=== PATIENT | female | born 1990 | race Caucasian/White ===

== ENCOUNTER 2019-10-28 10:44 | Emergency (ER) | payer MEDICAID, OTHER ==
[~2019-10-28] VITALS: Ht 152.4 cm; Wt 72.6 kg
[~2019-10-28 10:44] MED LIST: PREN-234
--- NOTE | 2019-10-28 10:52 | NUR ---
Patient ambulated to bed 4. RN evaluating patient at bedside.
[2019-10-28 10:55] VITALS: BP 125/75
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
--- NOTE | 2019-10-28 11:25 | NUR ---
Dr. Pretty is evaluating the patient at bedside.
[2019-10-28 12:20] VITALS: BP 125/75
--- NOTE | 2019-10-28 12:21 | NUR ---
Patient discharged with v/s stable. Written and verbal after care instructions given and explained. Patient alert, oriented and verbalized understanding of instructions. Ambulatory with steady gait. All questions addressed prior to discharge. ID band removed. Patient advised to follow up with PMD. Rx of CIPROFLOXACIN & NORCO given. Patient educated on indication of medication including possible reaction and side effects. Opportunity to ask questions provided and answered.
== END 2019-10-28 12:21 | disposition home or self-care (01) ==
LOC: MED 10:44
DX: N39.0 Urinary tract infection, site not specified (principal); M54.5 Low back pain; Z79.899 Other long term (current) drug therapy
CPT/HCPCS: 72100; 81002; 81025; 99283